=== PATIENT | male | born 1965 | race Caucasian/White ===

== ENCOUNTER 2018-02-25 22:52 | Emergency (ER) | payer OTHER ==
[~2018-02-25] VITALS: Ht 180.3 cm; Wt 106.8 kg
[2018-02-25] MEDS ORDERED: ACCUPRIL10 MG PO (23:07)
[2018-02-25] MEDS ORDERED: LIPITOR20 M2 PO (23:08)
[2018-02-26] MEDS ORDERED: IBU800 M1 PO (00:30)
[2018-02-26] MEDS ORDERED: CYCLOBENZAPRINE10 M1 PO (00:36)
[2018-02-26 00:45] VITALS: BP 154/87
== END 2018-02-26 00:45 | disposition home or self-care (01) ==
LOC: ED 22:52
DX: M25.512 Pain in left shoulder (principal); M54.2 Cervicalgia; W08.XXXA Fall from other furniture, initial encounter; I10 Essential (primary) hypertension; F17.210 Nicotine dependence, cigarettes, uncomplicated; Z79.899 Other long term (current) drug therapy
CPT/HCPCS: J1885

== ENCOUNTER → 2018-02-26 | Outpatient (CLI) | payer OTHER ==
[~2018-02-26] MED LIST: ACCUPRIL10 MG PO; CYCLOBENZAPRINE10 M1 PO; IBU800 M1 PO; LIPITOR20 M2 PO
[2018-02-26 00:45] VITALS: BP 154/87
== END ==
LOC: RAD 09:46
DX: M25.512 Pain in left shoulder (principal)

== ENCOUNTER 2019-07-28 14:39 | Emergency (ER) | payer OTHER ==
[~2019-07-28] VITALS: Ht 180.3 cm; Wt 102.3 kg
[2019-07-28] MEDS ORDERED: HCTZ 25MG25 MG PO (15:45)
[2019-07-28 15:56] LABS: ALBUMIN 4.6 g/dL (3.5-5.0)
[2019-07-28 15:57] LABS: POTASSIUM 3.6 mmol/L (3.5-5.1); SODIUM 138 mmol/L (136-145)
[2019-07-28 15:58] LABS: CALCIUM 10.3 mg/dL (8.3-10.5)
[2019-07-28 15:59] LABS: GLUCOSE 139 mg/dL (75-110); TOTAL PROTEIN 7.5 g/dL (6.4-8.3)
[2019-07-28 16:00] LABS: CARBON DIOXIDE 26 mmol/L (22-29)
[2019-07-28 16:01] LABS: TOTAL BILIRUBIN 0.3 mg/dL (0.2-1.2)
[2019-07-28 16:02] LABS: HEMATOCRIT 42.4 % (42.0-52.0); HEMOGLOBIN 14.4 g/dL (13.5-18.0); MEAN CELL VOLUME 95 fl (78-100); MEAN CORPUSCULAR HEMOGLOBIN 32 pg (27-31); MEAN CORPUSCULAR HGB CONC 34 g/dL (33-37); PLATELET COUNT 160 K/mm3 (130-400); RED BLOOD COUNT 4.46 M/mm3 (4.20-5.60); RED CELL DISTRIBUTION WIDTH 13.1 % (11.5-14.5); WHITE BLOOD COUNT 8.8 K/mm3 (4.8-10.8)
[2019-07-28 16:04] LABS: AST-SGOT 21 U/L (5-34); MEAN PLATELET VOLUME 12.2 fl (7.4-10.4)
[2019-07-28 16:05] LABS: ALT/SGPT 32 U/L (0-55)
[2019-07-28 16:14] LABS: LYMPHOCYTE 27 % (20-51); MONOCYTE 11 % (3-10); NEUTROPHILS 60 % (42-75)
[2019-07-28 16:15] LABS: TROPONIN-I < 0.03 ng/mL (<0.030)
[2019-07-28 17:15] VITALS: BP 132/76
== END 2019-07-28 17:15 | disposition home or self-care (01) ==
LOC: ED 14:39
PROVIDERS: Nurse Practitioner Family
DX: S29.011A Strain of muscle and tendon of front wall of thorax, initial encounter (principal); I10 Essential (primary) hypertension; F41.9 Anxiety disorder, unspecified; M51.36 Other intervertebral disc degeneration, lumbar region; F17.210 Nicotine dependence, cigarettes, uncomplicated; X58.XXXA Exposure to other specified factors, initial encounter
CPT/HCPCS: J1885

== ENCOUNTER 2019-12-04 11:23 | Emergency (ER) | payer BC ==
[~2019-12-04 11:23] MED LIST changes: +HCTZ 25MG25 MG PO
[2019-12-04] MEDS ORDERED: ED TYLENOL6 UDTAB/BO PO (11:32)
[2019-12-04] MEDS ORDERED: METFORMIN ER500 MG PO (11:32)
[2019-12-04] MEDS ORDERED: PREDNISONE10 MG PO (11:32)
[2019-12-04 13:04] VITALS: BP 133/96
== END 2019-12-04 13:05 | disposition home or self-care (01) ==
LOC: ED 11:23
DX: G56.22 Lesion of ulnar nerve, left upper limb (principal); M25.512 Pain in left shoulder; E11.9 Type 2 diabetes mellitus without complications; I10 Essential (primary) hypertension; F17.210 Nicotine dependence, cigarettes, uncomplicated; Z79.51 Long term (current) use of inhaled steroids; Z79.84 Long term (current) use of oral hypoglycemic drugs
CPT/HCPCS: J1885

== ENCOUNTER → 2024-02-16 | Outpatient (CLI) | payer BC ==
[~2024-02-16] MED LIST changes: +ATORVASTATIN CA20 MG PO; +BENADRYL ALLERG25 M1 PO; +CEPHALEXIN500 M1 PO; +CLONAZEPAM0.5 M1 PO; +ED TYLENOL6 UDTAB/BO PO; +LISINOPRIL40 MG PO; +METFORMIN ER500 MG PO; +PREDNISONE10 MG PO; +PREDNISONE20 M1 PO; +SERTRALINE HYD100 MG PO
== END ==
LOC: RAD 11:49
DX: M79.672 Pain in left foot (principal)